=== PATIENT | female | born 1995 | race African-American/Black ===

== ENCOUNTER 2016-11-14 19:30 | Emergency (ER) | payer OTHER ==
[2016-11-14] MEDS ORDERED: Azithromycin 250 MG TAB ONE (20:04)
== END 2016-11-14 20:05 | disposition home or self-care (01) ==
LOC: NAV ERS 19:30
DX: J20.9 Acute bronchitis, unspecified (principal)
CPT/HCPCS: 99283

== ENCOUNTER 2019-12-08 10:06 | Emergency (ER) | payer OTHER ==
[~2019-12-08 10:06] MED LIST: Ondansetron PF 4 MG/2 ML Vial ONE
[2019-12-08 10:15] LABS: Bilirubin Negative (Negative); Blood, Urine Negative (Negative); Clarity Slightly Cloudy (Clear); Glucose, Urine (Dipstick) Negative (Negative); Ketone, Urine Negative (Negative); Leukocyte Negative (Negative); Nitrite Negative (Negative); Protein, Urine (Dipstick) Trace mg/dL (Neg-Trace); Specific Gravity, Urine 1.025 (1.005-1.030); Urobilinogen 0.2 mg/dL (Less than 2); pH, Urine 6.5 (5.0-9.0)
[2019-12-08 10:16] LABS: Pregnancy Test - Urine (BHCG) POSITIVE (Negative); Pregu Control Background? CLEAR/WHITE (CLR/WHITE); Pregu Control Bar Appear? YES (CONTROL BAR); Specific Gravity 1.025 (1.002-1.036)
== END 2019-12-08 10:20 | disposition home or self-care (01) ==
LOC: NAV ERS 10:06
DX: O21.9 Vomiting of pregnancy, unspecified (principal); D50.9 Iron deficiency anemia, unspecified; Z79.899 Other long term (current) drug therapy
CPT/HCPCS: 81003; 81025; 99284; J2405

== ENCOUNTER 2020-12-17 09:30 | Emergency (ER) | payer OTHER, SELFPAY | END 2020-12-17 09:58 | disposition home or self-care (01) | LOC: NAV ERS 09:30 | DX: R07.0 Pain in throat (principal); R13.10 Dysphagia, unspecified; K06.8 Other specified disorders of gingiva and edentulous alveolar ridge | CPT/HCPCS: 99283 ==

== ENCOUNTER 2021-02-17 14:17 | Emergency (ER) | payer OTHER ==
[2021-02-17] MEDS ORDERED: Naproxen 500 MG TAB ONE (15:17)
== END 2021-02-17 15:23 | disposition home or self-care (01) ==
LOC: NAV ERS 14:17
DX: S06.0X0A Concussion without loss of consciousness, initial encounter (principal); S80.01XA Contusion of right knee, initial encounter; D50.9 Iron deficiency anemia, unspecified; V43.52XA Car driver injured in collision with other type car in traffic accident, initial encounter; Y92.410 Unspecified street and highway as the place of occurrence of the external cause
CPT/HCPCS: 70450; 72125

== ENCOUNTER 2021-05-21 16:41 | Emergency (ER) | payer OTHER ==
[2021-05-22 15:35] LABS: SARS-CoV-2 PCR by NAA DETECTED (NotDetected)
== END 2021-05-21 17:15 | disposition home or self-care (01) ==
LOC: NAV ERS 16:41
DX: U07.1 COVID-19 (principal); D50.9 Iron deficiency anemia, unspecified
CPT/HCPCS: 99284; U0003; U0005

== ENCOUNTER 2021-10-22 21:33 | Emergency (ER) | payer OTHER | END 2021-10-22 22:19 | disposition home or self-care (01) | LOC: NAV ERS 21:33 | DX: S90.121A Contusion of right lesser toe(s) without damage to nail, initial encounter (principal); D50.9 Iron deficiency anemia, unspecified; W22.8XXA Striking against or struck by other objects, initial encounter ==